=== PATIENT | female | born 1975 | race African-American/Black ===

== ENCOUNTER 2016-12-12 09:10 | Emergency (ER) | payer OTHER, MEDICAID ==
[~2016-12-12] VITALS: Ht 175.3 cm; Wt 111.0 kg
[~2016-12-12 09:10] MED LIST: METH500T3 PO
[2016-12-12 09:26] VITALS: BP 118/72; PULSE 78; RESP 18; TEMP 98.4; O2SAT 100
--- NOTE | 2016-12-12 11:13 | PD ---
HPI Chief Complaint: Hypertension Time Seen by Provider: 11:05 Travel History International Travel<30 days: No Contact w/Intl Traveler<30days: No Traveled to known affect area: No History of Present Illness HPI 40 year-old woman presents emergency room complaining of elevated blood pressure. She's not felt well for couple days has been taking her blood pressure at work and found it to be fluctuating up to the 160s systolic. She otherwise has been feeling generally well. No history of hypertension. No chest pain. She does endorse some occasional shortness of breath especially lying in certain positions. Her feet to swell sometimes at the end of the the day. 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 No other complaints. History Past Medical History Medical History: Denies Significant Hx Tetanus Vaccination: < 5 Years Influenza Vaccination: No LMP: 11-25-16 : 2 Para: 2 Social History Alcohol Use: No Tobacco Use: Yes (States, "Off and on") Allergies-Medications (Allergen,Severity, Reaction): Coded Allergies: No Known Allergies (Verified , 12/12/16) Reported Meds & Prescriptions Reported Meds & Active Scripts Active No Active Prescriptions or Reported Medications Review of Systems Except as stated in HPI: all other systems reviewed are Neg Physical Exam Narrative GENERAL: Well-appearing 40 year-old woman, no acute distress. SKIN: Warm and dry. HEAD: Atraumatic. Normocephalic. EYES: Pupils equal and round. No scleral icterus. No injection or drainage. ENT: No nasal bleeding or discharge. Mucous membranes pink and moist. NECK: Trachea midline. No JVD. CARDIOVASCULAR: Regular rate and rhythm. No murmur appreciated. RESPIRATORY: No accessory muscle use. Clear to auscultation. Breath sounds equal bilaterally. GASTROINTESTINAL: Abdomen soft, non-tender, nondistended. Hepatic and splenic margins not palpable. MUSCULOSKELETAL: No obvious deformities. No clubbing. No cyanosis. No edema. NEUROLOGICAL: Awake and alert. No obvious cranial nerve deficits. Motor grossly within normal limits. Normal speech. PSYCHIATRIC: Appropriate mood and affect; insight and judgment normal. Data Data Last Documented VS Vital Signs Date Time Temp Pulse Resp B/P Pulse Ox O2 Delivery O2 Flow Rate FiO2 12/12/16 11:25 82 16 126/62 98 Room Air 12/12/16 09:26 98.4 MDM Medical Decision Making Medical Screen Exam Complete: Yes Emergency Medical Condition: Yes Differential Diagnosis Hypertension, anxiety, acute illness, other Narrative Course Medical decision making 41 year-old woman presents emergent arm where there blood pressure is been up and down and that she has been feeling well for couple days. I don't see any real evidence of congestive heart failure. No chest pain to suggest an acute coronary syndrome. She likely needs outpatient follow-up for management of possible hypertension as well as routine medical care. Recommend outpatient follow-up with a primary physician. Diagnosis Primary Impression: Elevated blood pressure reading Additional Instructions: Establish with a primary doctor for follow-up with your blood pressure. He can keep a log of your blood pressure by taking it at the grocery store at the pharmacy. Make sure you sit down for several minutes prior to taking the blood pressure reading. Keep a log of her blood pressure and take it with you when you follow up with her primary physician. Return to the emergency department for any chest pain or trouble breathing. Med/Other Pt SpecificInfo: No Change to Meds Scripts No Active Prescriptions or Reported Meds Disposition: 01 DISCHARGE HOME Condition: Stable Elver Camejo MD Dec 12, 2016 11:13
[2016-12-12 11:25] VITALS: BP 126/62; PULSE 82; RESP 16; O2SAT 98
== END 2016-12-12 11:25 | disposition home or self-care (01) ==
LOC: PHED 09:10 → PHEFT 11:25
DX: R03.0 Elevated blood-pressure reading, without diagnosis of hypertension (principal); R06.02 Shortness of breath; M79.89 Other specified soft tissue disorders; Z72.0 Tobacco use
CPT/HCPCS: 99283

== ENCOUNTER 2017-06-09 08:55 | Emergency (ER) | payer SELFPAY ==
[~2017-06-09] VITALS: Ht 175.3 cm; Wt 111.0 kg
[2017-06-09 08:59] VITALS: BP 140/88; PULSE 81; RESP 16; TEMP 97.7; O2SAT 100
--- NOTE | 2017-06-09 09:12 | PD ---
HPI Chief Complaint: Headache Time Seen by Provider: 09:08 Travel History International Travel<30 days: No Contact w/Intl Traveler<30days: No Traveled to known affect area: No History of Present Illness HPI 41-year-old female here for evaluation of elevated blood pressure and headache. Patient reports that the symptoms started yesterday. She states that her blood pressure was elevated throughout the day yesterday. She also started having a headache. She reports pain behind her right eye which she describes as throbbing/ache, currently 7 out of 10. She took ibuprofen for this yesterday with significant improvement in pain. She does not take anything for high blood pressure. She describes photophobia in her right eye. No visual changes. No paresthesias or motor deficits. No fevers. PFSH Past Medical History Hx Anticoagulant Therapy: No Diminished Hearing: No Hypertension: Yes Immunizations Current: Yes Tetanus Vaccination: < 5 Years Influenza Vaccination: No ?: Not LMP: Today : 2 Para: 2 Miscarriage: 0 : 0 Past Surgical History Section: Yes (X's 2) Cholecystectomy: Yes Gynecologic Surgery: Yes ( 1 YEAR AGO) Social History Alcohol Use: No Tobacco Use: No Substance Use: No Allergies-Medications (Allergen,Severity, Reaction): Coded Allergies: No Known Allergies (Verified , 06/09/17) Reported Meds & Prescriptions Reported Meds & Active Scripts Active No Active Prescriptions or Reported Medications Review of Systems Except as stated in HPI: all other systems reviewed are Neg Physical Exam Narrative GENERAL: Well-developed, well-nourished, overall well-appearing, comfortable, no apparent distress. SKIN: Focused skin assessment warm/dry. HEAD: Atraumatic. Normocephalic. No temporal tenderness. EYES: Pupils equal, round, 3 mm, reactive to light. EOMI. No proptosis. No scleral icterus. No injection or drainage. ENT: Mucous membranes pink and moist. NECK: Trachea midline. No JVD. No nuchal rigidity. CARDIOVASCULAR: Regular rate and rhythm. RESPIRATORY: No accessory muscle use. Clear to auscultation. Breath sounds equal bilaterally. GASTROINTESTINAL: Abdomen soft, non-tender, nondistended. MUSCULOSKELETAL: No obvious deformities. No clubbing. No cyanosis. No edema. NEUROLOGICAL: Awake and alert. No obvious cranial nerve deficits. Motor grossly within normal limits. Normal speech. PSYCHIATRIC: Appropriate mood and affect; insight and judgment normal. Data Data Last Documented VS Vital Signs Date Time Temp Pulse Resp B/P (MAP) Pulse Ox O2 Delivery O2 Flow Rate FiO2 06/09/17 10:30 62 18 161/70 (100) 98 Room Air 06/09/17 08:59 97.7 Orders Orders Basic Metabolic Panel (Bmp) (06/09/17 09:08) Complete Blood Count With Diff (06/09/17 09:08) Iv Access Insert/Monitor (06/09/17 09:08) Ecg Monitoring (06/09/17 09:08) Oximetry (06/09/17 09:08) Sodium Chloride 0.9% Flush (Ns Flush) (06/09/17 09:15) Metoclopramide Inj (Reglan Inj) (06/09/17 09:15) Ketorolac Inj (Toradol Inj) (06/09/17 09:15) Sodium Chlor 0.9% 1000 Ml Inj (Ns 1000 M (06/09/17 09:15) Ct Brain W/O Iv Contrast(Rout) (06/09/17 ) Beta Hcg (Quant/Titer) (06/09/17 09:08) Labs Laboratory Tests Test 06/09/17 09:15 White Blood Count 4.3 TH/MM3 Red Blood Count 4.55 MIL/MM3 Hemoglobin 12.7 GM/DL Hematocrit 37.9 % Mean Corpuscular Volume 83.3 FL Mean Corpuscular Hemoglobin 27.8 PG Mean Corpuscular Hemoglobin Concent 33.4 % Red Cell Distribution Width 13.3 % Platelet Count 211 TH/MM3 Mean Platelet Volume 7.9 FL Neutrophils (%) (Auto) 46.6 % Lymphocytes (%) (Auto) 39.9 % Monocytes (%) (Auto) 8.2 % Eosinophils (%) (Auto) 4.5 % Basophils (%) (Auto) 0.8 % Neutrophils # (Auto) 2.1 TH/MM3 Lymphocytes # (Auto) 1.7 TH/MM3 Monocytes # (Auto) 0.3 TH/MM3 Eosinophils # (Auto) 0.2 TH/MM3 Basophils # (Auto) 0.0 TH/MM3 CBC Comment DIFF FINAL Differential Comment Blood Urea Nitrogen 9 MG/DL Creatinine 1.10 MG/DL Random Glucose 92 MG/DL Calcium Level 8.4 MG/DL Sodium Level 141 MEQ/L Potassium Level 3.9 MEQ/L Chloride Level 109 MEQ/L Carbon Dioxide Level 24.1 MEQ/L Anion Gap 8 MEQ/L Estimat Glomerular Filtration Rate 66 ML/MIN Human Chorionic Gonadotropin, Quant LESS THAN 1 MIU/ML MDM Medical Decision Making Medical Screen Exam Complete: Yes Emergency Medical Condition: Yes Medical Record Reviewed: Yes Differential Diagnosis Hypertensive urgency, cluster headache, migraine headache, tension headache, temporal arteritis unlikely, SAH/meningitis/encephalitis unlikely Narrative Course Initial vital signs show heart rate 81, blood pressure 140/88, pulse ox 100% on room air, oral temp of 97.7F. CBC is unremarkable. BMP is essentially unremarkable. CT head: No acute intracranial disease. Patient was given IV Toradol and IV Reglan. On reassessment she is resting comfortably. She states she is feeling a lot better. She is stable for discharge home with outpatient follow-up with a primary care physician this week. She was informed on when to return to the emergency department. She verbalizes understanding and agreement with plan. Diagnosis Primary Impression: Headache Qualified Codes: R51 - Headache Referrals: Primary Care Physician 3 days Additional Instructions: Follow-up with a primary care physician this week. Return to the emergency department for worsening symptoms or any other concerns. Scripts No Active Prescriptions or Reported Meds Disposition: 01 DISCHARGE HOME Condition: Stable Michael Pugh MD Jun 09, 2017 09:12
[2017-06-09] MEDS ORDERED: SODIUM CHLOR 0.9% 1000 ML INJ 1,000 ML IV ONE (09:15)
[2017-06-09] MEDS ORDERED: METOCLOPRAMIDE HCL 10 MG/2 ML VIAL IV PUSH ONE (09:15)
[2017-06-09] MEDS ORDERED: SODIUM CHLORIDE 0.9% FLUSH 10 ML FLUSH IV FLUSH PRN (09:15)
[2017-06-09] MEDS ORDERED: KETOROLAC TROMETHAMINE 30 MG/ML (IVP) VIAL IV PUSH ONE (09:15)
[2017-06-09 09:25] VITALS: O2SAT 100
[2017-06-09 09:28] LABS: AUTOMATED NEUTROPHIL # 2.1 TH/MM3 (1.8-7.7); BASOPHIL % 0.8 % (0.0-2.0); EOSINOPHIL # 0.2 TH/MM3 (0-0.4); EOSINOPHIL % 4.5 % (0.0-4.0); HEMATOCRIT 37.9 % (35.0-46.0); HEMO FLAGS DIFF FINAL; LYMPH % 39.9 % (9.0-44.0); LYMPHOCYTE # 1.7 TH/MM3 (1.0-4.8); MEAN CELL VOLUME 83.3 FL (80.0-100.0); MEAN CORPUSCULAR HEMOGLOBIN 27.8 PG (27.0-34.0); MEAN CORPUSCULAR HGB CONC 33.4 % (32.0-36.0); MONO % 8.2 % (0.0-8.0); NEUT % 46.6 % (16.0-70.0); PLATELET COUNT 211 TH/MM3 (150-450); RED BLOOD COUNT 4.55 MIL/MM3 (4.00-5.30); RED CELL DISTRIBUTION WIDTH 13.3 % (11.6-17.2); WHITE BLOOD COUNT 4.3 TH/MM3 (4.0-11.0)
[2017-06-09 09:57] LABS: CHLORIDE 109 MEQ/L (98-107); POTASSIUM 3.9 MEQ/L (3.5-5.1); SODIUM (NA) 141 MEQ/L (136-145)
[2017-06-09 10:00] LABS: ANION GAP 8 MEQ/L (5-15); BICARBONATE 24.1 MEQ/L (21.0-32.0); BLOOD UREA NITROGEN 9 MG/DL (7-18)
[2017-06-09 10:03] LABS: GLOMERULAR FILTRATION RATE 66 ML/MIN (>89)
[2017-06-09 10:08] LABS: BETA HCG QUANT LESS THAN 1 MIU/ML (0-5)
--- NOTE | 2017-06-09 10:25 | RADRPT ---
EXAM DATE/TIME: 06/09/2017 10:17 [facility] COMPARISON: No previous studies available for comparison. INDICATIONS : Headache with hypertension. RADIATION DOSE: 66.65 CTDIvol (mGy) MEDICAL HISTORY : Hypertension. SURGICAL HISTORY : Cholecystectomy. section. ENCOUNTER: Initial ACUITY: 2 days PAIN SCALE: 7/10 LOCATION: cranial TECHNIQUE: Multiple contiguous axial images were obtained of the head. Using automated exposure control and adj ustment of the mA and/or kV according to patient size, radiation dose was kept as low as reasonably a chievable to obtain optimal diagnostic quality images. DICOM format image data is available electro nically for review and comparison. FINDINGS: CEREBRUM: The ventricles are normal for age. No evidence of midline shift, mass lesion, hemorrhage or acute in farction. No extra-axial fluid collections are seen. POSTERIOR FOSSA: The cerebellum and brainstem are intact. The 4th ventricle is midline. The cerebellopontine angle i s unremarkable. EXTRACRANIAL: The visualized portion of the orbits is intact. SKULL: The calvaria is intact. No evidence of skull fracture. CONCLUSION: No acute intracranial disease. Lowell Graham MD on June 09, 2017 at 10:23 Board Certified Radiologist. This report was verified electronically.
[2017-06-09 10:30] VITALS: BP 161/70; PULSE 62; RESP 18; O2SAT 98
== END 2017-06-09 10:55 | disposition home or self-care (01) ==
LOC: PHED 08:55
DX: R51 Headache (principal)
CPT/HCPCS: 70450; 80048; 84702; 85025; 96361; 96374; 96375; 99285; J1885; J2765; J7030

== ENCOUNTER 2017-10-11 05:42 | Emergency (ER) | payer SELFPAY ==
[2017-10-11 05:45] VITALS: BP 158/98; PULSE 205; RESP 18; TEMP 98.2; O2SAT 97
[2017-10-11] MEDS ORDERED: ADENOSINE IV SOLN 3 MG/ML 2 ML VIAL ONE ×3 (05:48)
[2017-10-11 05:59] LABS: BASOPHIL # 0.1 TH/MM3 (0-0.2); BASOPHIL % 0.7 % (0.0-2.0); EOSINOPHIL # 0.1 TH/MM3 (0-0.4); EOSINOPHIL % 1.4 % (0.0-4.0); HEMATOCRIT 42.8 % (35.0-46.0); HEMOGLOBIN 14.1 GM/DL (11.6-15.3); LYMPH % 45.7 % (9.0-44.0); MEAN CELL VOLUME 82.3 FL (80.0-100.0); MEAN CORPUSCULAR HEMOGLOBIN 27.1 PG (27.0-34.0); MEAN CORPUSCULAR HGB CONC 32.9 % (32.0-36.0); MEAN PLATELET VOLUME 8.3 FL (7.0-11.0); MONO % 6.3 % (0.0-8.0); MONOCYTE # 0.6 TH/MM3 (0-0.9); NEUT % 45.9 % (16.0-70.0); PLATELET COUNT 257 TH/MM3 (150-450); RED CELL DISTRIBUTION WIDTH 13.5 % (11.6-17.2); WHITE BLOOD COUNT 8.8 TH/MM3 (4.0-11.0)
[2017-10-11] MEDS ORDERED: SODIUM CHLORIDE 0.9% FLUSH 10 ML FLUSH IVF PRN (06:00)
[2017-10-11] MEDS ORDERED: ASPIRIN 81 MG CHEW TAB PO ONE (06:00)
[2017-10-11] MEDS ORDERED: ADENOSINE IV SOLN 3 MG/ML 2 ML VIAL IV PUSH ONE ×2 (06:00)
[2017-10-11] MEDS ORDERED: SODIUM CHLOR 0.9% 1000 ML INJ 1,000 ML IV ONE (06:00)
[2017-10-11 06:05] LABS: CHLORIDE 103 MEQ/L (98-107); SODIUM (NA) 136 MEQ/L (136-145)
[2017-10-11 06:07] LABS: CALCIUM 8.3 MG/DL (8.5-10.1)
[2017-10-11 06:08] LABS: BICARBONATE 22.4 MEQ/L (21.0-32.0); BLOOD UREA NITROGEN 16 MG/DL (7-18); GLUCOSE,RANDOM 147 MG/DL (74-106)
[2017-10-11 06:09] LABS: PROTHROMBIN TIME - PATIENT 10.3 SEC (9.8-11.6)
[2017-10-11 06:11] LABS: GLOMERULAR FILTRATION RATE 54 ML/MIN (>89)
[2017-10-11 06:12] VITALS: BP 158/98; PULSE 100; RESP 15; TEMP 98.2; O2SAT 100
[2017-10-11 06:16] LABS: TROPONIN I LESS THAN 0.02 NG/ML (0.02-0.05)
--- NOTE | 2017-10-11 06:33 | RADRPT ---
EXAM DATE/TIME: 10/11/2017 05:55 [facility] COMPARISON: No previous studies available for comparison. INDICATIONS : Chest pressure. MEDICAL HISTORY : Hypertension. SURGICAL HISTORY : Cholecystectomy. section ENCOUNTER: Initial ACUITY: 1 day PAIN SCORE: 7/10 LOCATION: Bilateral chest FINDINGS: A single view of the chest demonstrates the lungs to be symmetrically aerated without evidence of mas s, infiltrate or effusion. The cardiomediastinal contours are unremarkable. Osseous structures are intact. CONCLUSION: No acute disease. Hi Mendez MD on October 11, 2017 at 6:30 Board Certified Radiologist. This report was verified electronically.
--- NOTE | 2017-10-11 06:38 | PD ---
HPI Chief Complaint: Cardiac Complaint Time Seen by Provider: 05:48 Travel History International Travel<30 days: No Contact w/Intl Traveler<30days: No Traveled to known affect area: No History of Present Illness HPI 42-year-old female presents to the emergency department for complaint of heart racing with diaphoresis. Symptoms began this morning. No prior history of rapid heartbeat or cardiac disease. Patient admits to drinking alcohol last evening celebrating her birthday and also admits to cocaine use. Has history of hypertension but denies dyslipidemia CAD arrhythmia diabetes or regular tobacco use. Family history of diabetes and hypertension in her family on father's side. Patient has associated shortness of breath and tightness in the chest states "feels difficult to breathe". PFSH Past Medical History Hx Anticoagulant Therapy: No Diminished Hearing: No Hypertension: Yes Immunizations Current: Yes : 2 Para: 2 Miscarriage: 0 : 0 Past Surgical History Section: Yes (X's 2) Cholecystectomy: Yes Gynecologic Surgery: Yes ( 1 YEAR AGO) Social History Alcohol Use: No Tobacco Use: No Substance Use: No Allergies-Medications (Allergen,Severity, Reaction): Coded Allergies: No Known Allergies (Verified , 06/09/17) Reported Meds & Prescriptions Reported Meds & Active Scripts Active Metoprolol Tartrate 25 Mg Tab 25 Mg PO DAILY Physical Exam Narrative GENERAL: Well-developed well-nourished female appears anxious and in moderate distress SKIN: Warm and dry. HEAD: Normocephalic. EYES: No scleral icterus. No injection or drainage. NECK: Supple, trachea midline. No JVD or lymphadenopathy. CARDIOVASCULAR: Increased Regular rate and rhythm without murmurs, gallops, or rubs. RESPIRATORY: Breath sounds equal bilaterally. No accessory muscle use. GASTROINTESTINAL: Abdomen soft, non-tender, nondistended. MUSCULOSKELETAL: No cyanosis, or edema. BACK: Nontender without obvious deformity. No CVA tenderness. Data Data Last Documented VS Vital Signs Date Time Temp Pulse Resp B/P (MAP) Pulse Ox O2 Delivery O2 Flow Rate FiO2 10/11/17 08:08 96 16 100 10/11/17 07:00 Nasal Cannula 2.00 10/11/17 06:12 98.2 Orders Orders Adenosine Inj (Adenocard Inj) (10/11/17 05:48) Adenosine Inj (Adenocard Inj) (10/11/17 06:00) Sodium Chlor 0.9% 1000 Ml Inj (Ns 1000 M (10/11/17 06:00) Adenosine Inj (Adenocard Inj) (10/11/17 05:48) Adenosine Inj (Adenocard Inj) (10/11/17 05:48) Electrocardiogram (10/11/17 05:49) Basic Metabolic Panel (Bmp) (10/11/17 05:49) Ckmb (Isoenzyme) Profile (10/11/17 05:49) Complete Blood Count With Diff (10/11/17 05:49) Magnesium (Mg) (10/11/17 05:49) Prothrombin Time / Inr (Pt) (10/11/17 05:49) Act Partial Throm Time (Ptt) (10/11/17 05:49) Troponin I (10/11/17 05:49) Chest, Single Ap (10/11/17 05:49) Ecg Monitoring (10/11/17 05:49) Bilateral Bp Monitoring (10/11/17 05:49) Iv Access Insert/Monitor (10/11/17 05:49) Oximetry (10/11/17 05:49) Oxygen Administration (10/11/17 05:49) Sodium Chloride 0.9% Flush (Ns Flush) (10/11/17 06:00) Thyroid Stimulating Hormone (10/11/17 05:49) Drug Screen, Random Urine (10/11/17 05:53) Alcohol (Ethanol) (10/11/17 05:50) CKMB (10/11/17 05:50) CKMB% (10/11/17 05:50) Ed Discharge Order (10/11/17 08:12) Electrocardiogram (10/11/17 05:53) Labs Laboratory Tests Test 10/11/17 05:50 10/11/17 06:30 White Blood Count 8.8 TH/MM3 Red Blood Count 5.20 MIL/MM3 Hemoglobin 14.1 GM/DL Hematocrit 42.8 % Mean Corpuscular Volume 82.3 FL Mean Corpuscular Hemoglobin 27.1 PG Mean Corpuscular Hemoglobin Concent 32.9 % Red Cell Distribution Width 13.5 % Platelet Count 257 TH/MM3 Mean Platelet Volume 8.3 FL Neutrophils (%) (Auto) 45.9 % Lymphocytes (%) (Auto) 45.7 % Monocytes (%) (Auto) 6.3 % Eosinophils (%) (Auto) 1.4 % Basophils (%) (Auto) 0.7 % Neutrophils # (Auto) 4.0 TH/MM3 Lymphocytes # (Auto) 4.0 TH/MM3 Monocytes # (Auto) 0.6 TH/MM3 Eosinophils # (Auto) 0.1 TH/MM3 Basophils # (Auto) 0.1 TH/MM3 CBC Comment DIFF FINAL Differential Comment Prothrombin Time 10.3 SEC Prothromb Time International Ratio 1.0 RATIO Activated Partial Thromboplast Time 25.1 SEC Blood Urea Nitrogen 16 MG/DL Creatinine 1.30 MG/DL Random Glucose 147 MG/DL Calcium Level 8.3 MG/DL Magnesium Level 2.0 MG/DL Sodium Level 136 MEQ/L Potassium Level 3.5 MEQ/L Chloride Level 103 MEQ/L Carbon Dioxide Level 22.4 MEQ/L Anion Gap 11 MEQ/L Estimat Glomerular Filtration Rate 54 ML/MIN Total Creatine Kinase 170 U/L Creatine Kinase MB 0.9 NG/ML Troponin I LESS THAN 0.02 NG/ML Thyroid Stimulating Hormone 3rd Gen 2.270 uIU/ML Ethyl Alcohol Level LESS THAN 3 MG/DL Urine Opiates Screen NEG Urine Barbiturates Screen NEG Urine Amphetamines Screen NEG Urine Benzodiazepines Screen NEG Urine Cocaine Screen POS Urine Cannabinoids Screen NEG MDM Medical Decision Making Medical Screen Exam Complete: Yes Emergency Medical Condition: Yes Medical Record Reviewed: Yes Interpretation(s) EKG SVT rate [address] elevation or injury pattern EKG after Adenocard 6 mg sinus tachycardia rate [address] elevation or injury pattern Last Impressions Chest X-Ray 10/11/17 0549 Signed Impressions: Service Date/Time: Wednesday, October 11, 2017 05:55 - CONCLUSION: No acute disease. Hi Mendez MD CBC & BMP Diagram 10/11/17 05:50 Calcium Level 8.3 L, Magnesium Level 2.0 Vital Signs Date Time Temp Pulse Resp B/P (MAP) Pulse Ox O2 Delivery O2 Flow Rate FiO2 10/11/17 06:59 16 100 Nasal Cannula 2.00 10/11/17 06:12 100 Nasal Cannula 2.00 10/11/17 06:12 98.2 100 15 158/98 (118) 100 Nasal Cannula 2.00 10/11/17 06:12 100 10/11/17 06:10 100 97 Nasal Cannula 2.00 10/11/17 05:45 98.2 205 18 158/98 (118) 97 Troponin I less than 0.02 Differential Diagnosis Palpitations, dyspnea, chest pain, atypical chest pain, ACS, substance ingestion , holiday heart Narrative Course patient placed on monitoring engineer with continuous pulse oximetry patient identified to be in SVT by monitoring engineer EKG performed which confirms SVT with no acute injury pattern change patient administered bolus of Adenocard 6 mg IV with conversion to sinus tachycardia again EKG performed shows sinus tachycardia rate 110 no acute injury pattern no ST elevation Advice and off for resulting Patient is are taken aspirin and is asymptomatic at this time Plan is to identify if patient has any other substances on tox screen is she now admits to cocaine use. Recommend metoprolol 12.5 as needed for recurrent SVT however she must understand that she cannot take this medication if she is using cocaine Lab values pending patient signed over to Dr. Zuñiga for disposition Diagnosis Primary Impression: SVT (supraventricular tachycardia) Additional Impression: Cocaine use Scripts Metoprolol Tartrate (Metoprolol Tartrate) 25 Mg Tab 25 MG PO DAILY for SVT, #30 TAB 0 Refills Prov: Jamal Zuñiga MD 10/11/17 Jayla Rhodes MD Oct 11, 2017 06:38
[2017-10-11 07:00] VITALS: BP 149/77; PULSE 99; RESP 16; O2SAT 100
--- NOTE | 2017-10-11 07:13 | PD ---
HPI Chief Complaint: Cardiac Complaint Time Seen by Provider: 07:10 Travel History International Travel<30 days: No Contact w/Intl Traveler<30days: No Traveled to known affect area: No History of Present Illness HPI Care assumed from Dr. Rhodes, please see previous note Patient placed on night monitor with continuous pulse oximetry patient identified to be in SVT by night monitor EKG performed which confirms SVT with no acute injury pattern change patient administered bolus of Adenocard 6 mg IV with conversion to sinus tachycardia again EKG performed shows sinus tachycardia rate 110 no acute injury pattern no ST elevation Advice and off for resulting Patient is are taken aspirin and is asymptomatic at this time Plan is to identify if patient has any other substances on tox screen is she now admits to cocaine use. Recommend metoprolol 12.5 as needed for recurrent SVT however she must understand that she cannot take this medication if she is using cocaine Lab values pending patient signed over to Dr. Zuñiga for disposition PFSH Past Medical History Hx Anticoagulant Therapy: No Patient Takes Glucophage: No Diminished Hearing: No Hypertension: Yes Immunizations Current: Yes Influenza Vaccination: No ?: Not LMP: 09/21/2017 : 2 Para: 2 Miscarriage: 0 : 0 Past Surgical History Section: Yes (X's 2) Cholecystectomy: Yes Gynecologic Surgery: Yes ( X 2) Social History Alcohol Use: Yes (DRANK LAST NIGHT FOR BIRTHDAY CELEBRATION) Tobacco Use: Yes (SMOKED LAST NIGHT 10/10/17) Substance Use: Yes (LAST NIGHT COCCAINE) Allergies-Medications (Allergen,Severity, Reaction): Coded Allergies: No Known Allergies (Verified , 06/09/17) Reported Meds & Prescriptions Reported Meds & Active Scripts Active No Active Prescriptions or Reported Medications Review of Systems General / Constitutional: No: Fever Eyes: No: Visual changes HENT: No: Headaches Cardiovascular: Positive: Tachycardia, No: Chest Pain or Discomfort Respiratory: No: Shortness of Breath Gastrointestinal: No: Abdominal Pain Genitourinary: No: Dysuria Musculoskeletal: No: Pain Skin: No Rash Neurologic: No: Weakness Psychiatric: No: Depression Endocrine: No: Polydipsia Hematologic/Lymphatic: No: Easy Bruising Physical Exam Narrative GENERAL: Well-nourished, well-developed patient. SKIN: Focused skin assessment warm/dry. HEAD: Normocephalic. EYES: No scleral icterus. No injection or drainage. NECK: Supple, trachea midline. No JVD or lymphadenopathy. CARDIOVASCULAR: Regular rate and rhythm without murmurs, gallops, or rubs. RESPIRATORY: Breath sounds equal bilaterally. No accessory muscle use. GASTROINTESTINAL: Abdomen soft, non-tender, nondistended. MUSCULOSKELETAL: No cyanosis, or edema. BACK: Nontender without obvious deformity. No CVA tenderness. Data Data Last Documented VS Vital Signs Date Time Temp Pulse Resp B/P (MAP) Pulse Ox O2 Delivery O2 Flow Rate FiO2 10/11/17 07:00 99 16 149/77 (101) 100 Nasal Cannula 2.00 10/11/17 06:12 98.2 Orders Orders Adenosine Inj (Adenocard Inj) (10/11/17 05:48) Adenosine Inj (Adenocard Inj) (10/11/17 06:00) Sodium Chlor 0.9% 1000 Ml Inj (Ns 1000 M (10/11/17 06:00) Adenosine Inj (Adenocard Inj) (10/11/17 05:48) Adenosine Inj (Adenocard Inj) (10/11/17 05:48) Electrocardiogram (10/11/17 05:49) Basic Metabolic Panel (Bmp) (10/11/17 05:49) Ckmb (Isoenzyme) Profile (10/11/17 05:49) Complete Blood Count With Diff (10/11/17 05:49) Magnesium (Mg) (10/11/17 05:49) Prothrombin Time / Inr (Pt) (10/11/17 05:49) Act Partial Throm Time (Ptt) (10/11/17 05:49) Troponin I (10/11/17 05:49) Chest, Single Ap (10/11/17 05:49) Ecg Monitoring (10/11/17 05:49) Bilateral Bp Monitoring (10/11/17 05:49) Iv Access Insert/Monitor (10/11/17 05:49) Oximetry (10/11/17 05:49) Oxygen Administration (10/11/17 05:49) Sodium Chloride 0.9% Flush (Ns Flush) (10/11/17 06:00) Thyroid Stimulating Hormone (10/11/17 05:49) Drug Screen, Random Urine (10/11/17 05:53) Alcohol (Ethanol) (10/11/17 05:50) CKMB (10/11/17 05:50) CKMB% (10/11/17 05:50) Labs Laboratory Tests Test 10/11/17 05:50 10/11/17 06:30 White Blood Count 8.8 TH/MM3 Red Blood Count 5.20 MIL/MM3 Hemoglobin 14.1 GM/DL Hematocrit 42.8 % Mean Corpuscular Volume 82.3 FL Mean Corpuscular Hemoglobin 27.1 PG Mean Corpuscular Hemoglobin Concent 32.9 % Red Cell Distribution Width 13.5 % Platelet Count 257 TH/MM3 Mean Platelet Volume 8.3 FL Neutrophils (%) (Auto) 45.9 % Lymphocytes (%) (Auto) 45.7 % Monocytes (%) (Auto) 6.3 % Eosinophils (%) (Auto) 1.4 % Basophils (%) (Auto) 0.7 % Neutrophils # (Auto) 4.0 TH/MM3 Lymphocytes # (Auto) 4.0 TH/MM3 Monocytes # (Auto) 0.6 TH/MM3 Eosinophils # (Auto) 0.1 TH/MM3 Basophils # (Auto) 0.1 TH/MM3 CBC Comment DIFF FINAL Differential Comment Prothrombin Time 10.3 SEC Prothromb Time International Ratio 1.0 RATIO Activated Partial Thromboplast Time 25.1 SEC Blood Urea Nitrogen 16 MG/DL Creatinine 1.30 MG/DL Random Glucose 147 MG/DL Calcium Level 8.3 MG/DL Magnesium Level 2.0 MG/DL Sodium Level 136 MEQ/L Potassium Level 3.5 MEQ/L Chloride Level 103 MEQ/L Carbon Dioxide Level 22.4 MEQ/L Anion Gap 11 MEQ/L Estimat Glomerular Filtration Rate 54 ML/MIN Total Creatine Kinase 170 U/L Creatine Kinase MB 0.9 NG/ML Troponin I LESS THAN 0.02 NG/ML Thyroid Stimulating Hormone 3rd Gen 2.270 uIU/ML Ethyl Alcohol Level LESS THAN 3 MG/DL Urine Opiates Screen NEG Urine Barbiturates Screen NEG Urine Amphetamines Screen NEG Urine Benzodiazepines Screen NEG Urine Cocaine Screen POS Urine Cannabinoids Screen NEG MDM Medical Decision Making Medical Screen Exam Complete: Yes Emergency Medical Condition: Yes Differential Diagnosis SVT, drug abuse, acute coronary syndrome Narrative Course Patient resting comfortably in sinus rhythm, labs pending, awaiting Disposition Diagnosis Primary Impression: SVT (supraventricular tachycardia) Additional Impression: Cocaine use Patient Instructions: General Instructions Additional Instructions: Encouraged to follow-up with PCP to assess continuation of daily beta apolinar. Encouraged cessation of drug use. Start medication tomorrow morning. Return to emergency room with any onset of new symptoms. Med/Other Pt SpecificInfo: Prescription(s) given, No Meds Exist/No RX given Scripts Metoprolol Tartrate (Metoprolol Tartrate) 25 Mg Tab 25 MG PO DAILY for SVT, #30 TAB 0 Refills Prov: Jamal Zuñiga MD 10/11/17 Disposition: 01 DISCHARGE HOME Condition: Good Jamal Zuñiga MD Oct 11, 2017 07:13
[2017-10-11] MEDS ORDERED: METO25TA3 PO (08:11)
--- NOTE | 2017-10-11 16:58 | EKG ---
Date Performed: 10/11/2017 Time Performed: 05:50:25 PTAGE: 42 years EKG: SUPRAVENTRICULAR TACHYCARDIA NONSPECIFIC ST & T-WAVE ABNORMALITY ABNORMAL RHYTHM ECG PREVIOUS TRACING : 11/27/2010 08.48 Compared to the previous tracing SR no longer present DOCTOR: Hong Zee Interpretating Date/Time 10/11/2017 16:57:26
--- NOTE | 2017-10-11 16:58 | EKG ---
Date Performed: 10/11/2017 Time Performed: 05:53:21 PTAGE: 42 years EKG: SINUS TACHYCARDIA MODERATE ST DEPRESSION PREVIOUS TRACING : 10/11/2017 05.50 Compared to the previous tracing SVT no longer presen t DOCTOR: Hong Zee Interpretating Date/Time 10/11/2017 16:56:43
== END 2017-10-11 08:24 | disposition home or self-care (01) ==
LOC: PHED 05:42
DX: I47.1 Supraventricular tachycardia (principal); F14.10 Cocaine abuse, uncomplicated; R94.31 Abnormal electrocardiogram [ECG] [EKG]; I10 Essential (primary) hypertension; Z72.0 Tobacco use
CPT/HCPCS: 71010; 80048; 80307; 82550; 82552; 83735; 84443; 84484; 85025; 85610; 85730; 93005; 96360; 99285; J0153; J7030

== ENCOUNTER 2018-04-29 04:19 | Observation (INO) ==
[2018-04-29] MEDS ORDERED: Adenosine Inj 6 MG/2 ML Syringe IV.PUSH ONE ×2 (04:33→04:37)
--- NOTE | 2018-04-29 04:57 | ED ---
HPI General Chief complaint: Arrhythmia/Palpitations Stated complaint: Chest Pain x 30 min Time Seen by Provider: 04/29/18 04:55 History of Present Illness HPI narrative: Patient is a 42-year-old female with a history of SVT presents the emergency department for evaluation of chest pain. Patient states she awoke from a sound sleep about an hour prior to presentation very uncomfortable heavy feeling in the center of her chest radiating up her right jaw. Patient states she has never had pain like this before but has had episodes of SVT in the past and had to be given a shot at least one time in the past for this. 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 Patient roomed expediently and on arrival was found to have a heart rate of 197. She also endorse some mild shortness of breath and some sweating. Related Data Home Medications Medication Instructions Recorded Confirmed No Known Home Medications 04/29/18 04/29/18 Allergies Allergy/AdvReac Type Severity Reaction Status Date / Time No Known Allergies Allergy Unverified 04/29/18 04:44 Review of Systems Except as stated in HPI: all other systems reviewed are negative [facility] Medical History Medical History delivery delivered (Acute) HTN (hypertension) (Acute) Kidney stones (Acute) Palpitations (Acute) Social History Social History Substance History: No History of Abuse Smoking Status: Current every day smoker Tobacco Type: Cigarettes How Often Do You Have a Drink Containing Alcohol: 2 to 4 times a month Exam Narrative Exam Narrative: GENERAL: Well-developed morbidly obese female appears mildly uncomfortable. SKIN: Focused skin assessment warm/dry. HEAD: Atraumatic. Normocephalic. EYES: Pupils equal and round. No scleral icterus. No injection or drainage. ENT: No nasal bleeding or discharge. Mucous membranes pink and moist. NECK: Trachea midline. No JVD. CARDIOVASCULAR: Regular rhythm with tachycardia, 2+ bilateral equal pulses in all 4 extremities peer RESPIRATORY: No accessory muscle use. Clear to auscultation. Breath sounds equal bilaterally. GASTROINTESTINAL: Abdomen soft, non-tender, nondistended. Hepatic and splenic margins not palpable. MUSCULOSKELETAL: No obvious deformities. No clubbing. No cyanosis. No edema. NEUROLOGICAL: Awake and alert. No obvious cranial nerve deficits. Motor grossly within normal limits. Normal speech. PSYCHIATRIC: Appropriate mood and affect; insight and judgment normal. Course Initial Documented Vital Signs Temperature 98.2 F 04/29/18 04:30 Pulse Rate 200 H 04/29/18 04:30 Respiratory Rate 20 04/29/18 04:30 Blood Pressure 134/71 04/29/18 04:30 Pulse Oximetry 98 04/29/18 04:30 Last Documented Vital Signs Temperature 98.2 F 04/29/18 04:30 Pulse Rate 92 H 04/29/18 04:40 Respiratory Rate 20 04/29/18 04:40 Blood Pressure 158/79 H 04/29/18 04:40 Pulse Oximetry 99 04/29/18 05:37 Medical Decision Making MDM Narrative Medical decision making narrative: Patient room to the emergency department, when noted to be in SVT at a rate of 197, IV access was obtained, patient alert and awake and oriented GCS of 15, blood pressure in the 130 systolic range. After IV access obtained patient was given 6 mg adenosine by rapid push, without effect the patient had a repeat dose of 12 mg of adenosine, and had conversion to sinus tachycardia and over the next few minutes had resolved to sinus rhythm. Patient's chest pain had then resolved. She reports that she did take full dose aspirin prior to arrival. repeat EKG after rate control shows sinus rhythm at a rate of 111 there is some minimal ST segment depression in 2 3 and aVF, no ST segment elevation. This shortened OK but no widened QRS. Singular PVC is also noted. Certainly this EKG does not meet STEMI alert criteria. Initial troponin negative, my concern is that the patient may have a rate dependent blockage that is causing her to have some pain as well. I have added a urine drug screen on to this patient. I think that she should be discussed for observation status and consideration of stress testing she has never had stress testing for this. FINAL DIAGNOSIS: Chest Pain, SVT. Differential Diagnosis Differential Diagnosis: ACS, ME, SVT, A. fib RVR, Aeyjz-Scjbysbhc-Rjwdd disease Medical Records Medical records reviewed: Yes I reviewed the patient's medical records. Patient's records show that the patient was here once in September 2017 for SVT, did receive a dose of adenosine, she did admit to cocaine use on that visit, she was started on beta-blockers but apparently never followed up with a primary care physician for this. She was not admitted to the hospital in this ER visit. Lab Data Result diagrams: 04/29/18 05:00 04/29/18 05:00 Lab Results 04/29/18 04/29/18 04/29/18 Range/Units 05:00 05:00 05:00 CBC w Diff Auto diff final WBC 4.7 (4.0-11.0) th/mm3 RBC 4.64 (4.00-5.30) mil/mm3 Hgb 12.9 (11.6-15.3) gm/dL Hct 38.5 (35.0-46.0) % MCV 83.1 (80.0-100.0) fL MCH 27.9 (27.0-34.0) pg MCHC 33.6 (32.0-36.0) % RDW 13.5 (11.6-17.2) % Plt Count 199 (150-450) th/mm3 MPV 8.5 (7.0-11.0) fL Neut % (Auto) 52.6 (16.0-70.0) % Lymph % (Auto) 37.0 (9.0-44.0) % [place] % (Auto) 7.0 (0.0-8.0) % Eos % (Auto) 1.6 (0.0-4.0) % Baso % (Auto) 1.8 (0.0-2.0) % Neut # (Auto) 2.5 (1.8-7.7) th/mm3 Lymph # (Auto) 1.7 (1.0-4.8) th/mm3 [place] # (Auto) 0.3 (0.0-0.9) th/mm3 Eos # (Auto) 0.1 (0.0-0.4) th/mm3 Baso # (Auto) 0.1 (0.0-0.2) th/mm3 WBC Differential . Differential Comment . PT 11.0 (9.8-11.6) sec INR 1.1 Ratio APTT 26.4 (24.3-30.1) sec Sodium 141 (136-145) meq/L Potassium 3.2 L (3.5-5.1) meq/L Chloride 111 H (98-107) meq/L Carbon Dioxide 20.9 L (21.0-32.0) meq/L Anion Gap 9 (5-15) meq/L BUN 13 (7-18) mg/dL Creatinine 1.00 (0.50-1.00) mg/dL Estimated GFR 73 L (>89) mL/min Random Glucose 120 H (74-106) mg/dL Calcium 7.9 L (8.5-10.1) mg/dL Magnesium 1.8 (1.5-2.5) mg/dL Total Creatine Kinase 166 (26-192) U/L CK-MB (CK-2) 0.6 (0.5-3.6) ng/mL Troponin I Less than 0.02 L (0.02-0.05) ng/mL Imaging Data Radiologist's impression: ITS Impressions Chest X-Ray 04/29/18 04:56 CONCLUSION: 1. No acute cardiopulmonary disease. Discharge Plan Discharge Disposition Patient Disposition: 30 Still Patient Physicians Team ED Provider: Ambrocio Chinchilla Primary Care Provider: Primary Care Vianney Albarran Rxs /Orders / Referrals /Forms Prescriptions: No Action No Known Home Medications RF: 0 Status ED Status: With Doctor
[2018-04-29 05:16] LABS: Baso # (Auto) 0.1 th/mm3 (0.0-0.2); Baso % (Auto) 1.8 % (0.0-2.0); Eos # (Auto) 0.1 th/mm3 (0.0-0.4); Eos % (Auto) 1.6 % (0.0-4.0); Hematocrit 38.5 % (35.0-46.0); Hemoglobin 12.9 gm/dL (11.6-15.3); Lymph # (Auto) 1.7 th/mm3 (1.0-4.8); Mean Corpuscular HGB Conc 33.6 % (32.0-36.0); Mean Corpuscular Hemoglobin 27.9 pg (27.0-34.0); Mean Corpuscular Volume 83.1 fL (80.0-100.0); Mean Platelet Volume 8.5 fL (7.0-11.0); Mono # (Auto) 0.3 th/mm3 (0.0-0.9); Neut # (Auto) 2.5 th/mm3 (1.8-7.7); Neut % (Auto) 52.6 % (16.0-70.0); Platelet Count 199 th/mm3 (150-450); Red Blood Count 4.64 mil/mm3 (4.00-5.30); Red Cell Distribution Width 13.5 % (11.6-17.2); White Blood Count 4.7 th/mm3 (4.0-11.0)
--- NOTE | 2018-04-29 05:23 | XR ---
EXAM DATE: 04/29/2018 5:12 AM EDT AGE/SEX: 42 years / Female INDICATIONS: Chest pain. CLINICAL DATA: This is the patient's initial encounter. Patient reports that signs and symptoms have been present for 1 day and indicates a pain score of 7/10. MEDICAL/SURGICAL HISTORY: . Hypertension . Cholecystectomy. section COMPARISON: [facility], CHEST SINGLE AP, 10/11/2017. . FINDINGS: A single AP view of the chest demonstrates the lungs to be symmetrically aerated without evidence of mass, infiltrate or effusion. The cardiomediastinal contours are unremarkable. Osseous structures a re intact. CONCLUSION: 1. No acute cardiopulmonary disease. Electronically signed by: Romel Castillo MD 04/29/2018 5:22 AM EDT
[2018-04-29 05:24] LABS: Chloride 111 meq/L (98-107); Potassium 3.2 meq/L (3.5-5.1); Sodium 141 meq/L (136-145)
[2018-04-29 05:26] LABS: Calcium 7.9 mg/dL (8.5-10.1)
[2018-04-29 05:27] LABS: Anion Gap 9 meq/L (5-15); Blood Urea Nitrogen 13 mg/dL (7-18); Carbon Dioxide 20.9 meq/L (21.0-32.0); Glucose,Random 120 mg/dL (74-106); Magnesium 1.8 mg/dL (1.5-2.5)
[2018-04-29 05:29] LABS: Activated Partial Thrombo Time 26.4 sec (24.3-30.1); INR 1.1 Ratio
[2018-04-29 05:30] LABS: Glomerular Filtration Rate 73 mL/min (>89)
[2018-04-29 05:33] LABS: Creatine Kinase 166 U/L (26-192)
[2018-04-29 05:45] LABS: Creatine Kinase MB 0.6 ng/mL (0.5-3.6)
[2018-04-29 07:04] LABS: Bilirubin,Urine Negative (Negative); Clarity,Urine Clear (Clear); Color,Urine Yellow (Yellw/Straw); Glucose,Urine (UA) Negative (Negative); Leukocyte Esterase,Urine Negative (Negative); Nitrite,Urine Negative (Negative); Urobilinogen,Urine 0.2 mg/dL (Less than 2)
[2018-04-29 07:11] LABS: Amphetamine Screen,Urine Neg (Neg)
[2018-04-29 07:12] LABS: Cannabinoid Screen,Urine Neg (Neg); Cocaine Screen,Urine Pos (Neg); RBC,Urine 0-3 /hpf (0-3); Squamous Epithelial Cell,Urine 0-5 /hpf (0-5)
[2018-04-29 07:20] LABS: Barbiturate Screen,Urine Neg (Neg)
[2018-04-29 07:26] LABS: Opiate Screen,Urine Neg (Neg)
--- NOTE | 2018-04-29 08:35 | ECG ---
Date Performed: 04/29/2018 Time Performed: 04:40:43 PTAGE: 42 years EKG: SINUS TACHYCARDIA WITH SHORT [place] INTERVAL WITH OCCASIONAL VENTRICULAR PREMATURE COMPLEXES PO SSIBLE LEFT ATRIAL ENLARGEMENT No significant change from prior electrocardiogram. ABNORMAL ECG Maurilio red to prior electrocardiogram, Sinus rhythm has replaced SVT. PREVIOUS TRACING : 10/11/2017 05.53 DOCTOR: Bobby Fabian Interpretating Date/Time 04/29/2018 08:34:26
--- NOTE | 2018-04-29 08:36 | ECG ---
Date Performed: 04/29/2018 Time Performed: 04:39:43 PTAGE: 42 years EKG: SUPRAVENTRICULAR TACHYCARDIA NONSPECIFIC ST & T-WAVE ABNORMALITY ABNORMAL ECG Compared to p rior electrocardiogram, SVT has replaced either sinus tachycardia or atrial flutter. PREVIOUS TRACING : 10/11/2017 05.53 DOCTOR: Bobby Fabian Interpretating Date/Time 04/29/2018 08:35:21
--- NOTE | 2018-04-29 09:25 | P.HP ---
History of Present Illness Primary Care Physician: No Primary Care Physician History of Present Illness: This is a pleasant 42-year-old female patient with a known medical history of SVT who presented to the ED with complaints of chest pain. Patient states that she was awoken out of sleep roughly around 4 AM this morning when she developed a heavy feeling in her chest, the heaviness radiating up her right jaw as well as associated palpitations. Patient does admit to associated shortness of breath with the pain. Denies any sweating or nausea or vomiting. Patient does state that she does have a history of SVT in the past, her last episode was last year was given a dose of adenosine and symptoms resolved. Patient denies ever having chest pain or a cardiac stress test in the past. She does not follow with the optometrist nor a PCP. Upon presentation patient's heart rate was in the 190s. Was given adenosine 2 and eventually resolved to sinus rhythm. At the time of assessment patient's symptoms have improved, cardiac telemetry with no arrhythmias overnight. Normal sinus rhythm noted. No chest pain. Patient denies any shortness of breath or diaphoresis overnight. Patient denies any recent illness including fever, chills, cough, abdominal pain , nausea, vomiting, diarrhea or dysuria. Patient does not take any medicines at home. It should be noted that patient has a family history of her father having an AL in his 40s and over the course of his life he had a total of 5 MIs. Patient does admit to intermittently smoking cigarettes roughly 1 or 2 cigarettes per week. She does admit to cocaine use 2 days ago during a republican, states she does not usually do cocaine and this was a one-time incident. - Diagnosis (1) SVT (supraventricular tachycardia) (2) Chest pain Inpatient Certification: I certify that the inpatient services were ordered in accordance with Medicare regulations governing the order. This includes certification that hospital inpatient services are reasonable and necessary and in the case of services not specified as inpatient-only under 42 CFR 419.22(n), that they are appropriately provided as inpatient services in accordance to with the 2-midnight benchmark under 43 CFR 412.3(e) Review of Systems All other systems reviewed negative except as stated in HPI [facility] - History History Provided By: Patient - Medical History Medical History: Medical History (Last Updated 04/29/18 @ 05:30 by Chelo L Bunting) delivery delivered HTN (hypertension) Kidney stones Palpitations - Family History Family History: Family History (Last Updated 04/29/18 @ 11:24 by Jessi Hughes) Other Heart attack - Tobacco History Second Hand Smoke Exposure: No Tobacco Use In Past 30 Days: No Smoking Status: Current some day smoker Tobacco Type: Cigarettes - Alcohol History How Often Do You Have a Drink Containing Alcohol: Monthly or less - Substance Use History Substance History: No History of Abuse - Immunization History Tetanus Immunization: Unsure Medications and Allergies Active Medications: Active Medications Aspirin (Ecotrin) 325 mg PO DAILY [facility] Last Admin: 04/29/18 08:55 Dose: 325 mg Nitroglycerin (Nitro-Bid 2% Oint) 1 inch TOPICAL Q6HR [facility] Ondansetron HCl (Zofran Inj) 4 mg IV.PUSH Q6H PRN PRN Reason: NAUSEA OR VOMITING Sodium Chloride (Ns Flush) 2 ml IV.FLUSH UNSCH PRN PRN Reason: FLUSH AFTER USING IV ACCESS Last Admin: 04/29/18 08:56 Dose: 2 ml Sodium Chloride (Ns Inj) 2 ml IV.FLUSH BID [facility] Sodium Chloride (Ns Inj) 2 ml IV.FLUSH UNSCH PRN PRN Reason: FLUSH AFTER USING IV ACCESS Allergies Allergy/AdvReac Type Severity Reaction Status Date / Time No Known Allergies Allergy Unverified 04/29/18 04:44 Home Medications Medication Instructions Recorded Confirmed Type No Known Home Medications 04/29/18 04/29/18 History Exam Vital signs: Vital Signs 04/29/18 04:30 04/29/18 04:40 04/29/18 05:37 Temperature 98.2 F Pulse Rate 200 H 92 H Respiratory Rate 20 20 Blood Pressure 134/71 158/79 H Pulse Oximetry 99 99 99 04/29/18 06:47 Temperature Pulse Rate 96 H Respiratory Rate 18 Blood Pressure 139/70 Pulse Oximetry 98 Intake & Output 04/28/18 04/29/18 04/29/18 18:59 06:59 18:59 Weight 113 kg - Constitutional no acute distress - Routine HEENT Exam Head: Present: normocephalic Eye: Present: EOMI, PERRL - Routine Neck Exam Present: supple, full ROM - Routine Cardiovascular Exam Present: RRR, S1, S2 - Routine Abdominal Exam Present: soft - Routine Skin Exam Present: intact - Routine Neurological Exam Present: alert, oriented X3 Results - Labs CBC & Chem 7: 04/29/18 05:00 04/29/18 05:00 Labs: Laboratory Results - last 24 hr 04/29/18 04/29/18 04/29/18 05:00 05:00 05:00 CBC w Diff Auto diff final WBC 4.7 RBC 4.64 Hgb 12.9 Hct 38.5 MCV 83.1 MCH 27.9 MCHC 33.6 RDW 13.5 Plt Count 199 MPV 8.5 Neut % (Auto) 52.6 Lymph % (Auto) 37.0 Hubbard % (Auto) 7.0 Eos % (Auto) 1.6 Baso % (Auto) 1.8 Neut # (Auto) 2.5 Lymph # (Auto) 1.7 Hubbard # (Auto) 0.3 Eos # (Auto) 0.1 Baso # (Auto) 0.1 WBC Differential . Differential Comment . PT 11.0 INR 1.1 APTT 26.4 Sodium 141 Potassium 3.2 L Chloride 111 H Carbon Dioxide 20.9 L Anion Gap 9 BUN 13 Creatinine 1.00 Estimated GFR 73 L Random Glucose 120 H Calcium 7.9 L Magnesium 1.8 Total Creatine Kinase 166 CK-MB (CK-2) 0.6 Troponin I Less than 0.02 L Ur Collection Type Urine Color Urine Clarity Urine pH Ur Specific [place] Urine Protein Urine Glucose (UA) Urine Ketones Urine Occult Blood Urine Nitrate Urine Bilirubin Urine Urobilinogen Ur Leukocyte Esterase Urine RBC Ur Squamous Epith Cells Micro UA Comment Urine Culture Comments Urine Opiates Screen Ur Barbiturates Screen Ur Amphetamines Screen U Benzodiazepines Scrn Urine Cocaine Screen U Cannabinoids Screen 04/29/18 04/29/18 06:55 06:55 CBC w Diff WBC RBC Hgb Hct MCV MCH MCHC RDW Plt Count MPV Neut % (Auto) Lymph % (Auto) Hubbard % (Auto) Eos % (Auto) Baso % (Auto) Neut # (Auto) Lymph # (Auto) Hubbard # (Auto) Eos # (Auto) Baso # (Auto) WBC Differential Differential Comment PT INR APTT Sodium Potassium Chloride Carbon Dioxide Anion Gap BUN Creatinine Estimated GFR Random Glucose Calcium Magnesium Total Creatine Kinase CK-MB (CK-2) Troponin I Ur Collection Type Clean catch Urine Color Yellow Urine Clarity Clear Urine pH 6.0 Ur Specific [place] 1.010 Urine Protein Negative Urine Glucose (UA) Negative Urine Ketones Negative Urine Occult Blood Negative Urine Nitrate Negative Urine Bilirubin Negative Urine Urobilinogen 0.2 Ur Leukocyte Esterase Negative Urine RBC 0-3 Ur Squamous Epith Cells 0-5 Micro UA Comment Culture not ind Urine Culture Comments Culture not ind Urine Opiates Screen Neg Ur Barbiturates Screen Neg Ur Amphetamines Screen Neg U Benzodiazepines Scrn Neg Urine Cocaine Screen Pos U Cannabinoids Screen Neg - Imaging Impressions Chest X-Ray 04/29/18 04:56 CONCLUSION: 1. No acute cardiopulmonary disease. Caprini VTE Risk Assessment Caprini VTE Risk Assessment: No/Low Risk (score <= 1) Caprini Risk Assessment Model: Point Value = 1 Point Value = 2 Point Value = 3 Point Value = 5 Age 41-60 Minor surgery BMI > 25 kg/m2 Swollen legs Varicose veins or History of unexplained or recurrent spontaneous Oral contraceptives or hormone replacement Sepsis (< 1 month) Serious lung disease, including pneumonia (< 1 month) Abnormal pulmonary function Acute myocardial infarction Congestive heart failure (< 1 month) History of inflammatory bowel disease Medical patient at bed rest Age 61-74 Arthroscopic surgery Major open surgery (> 45 min) Laparoscopic surgery (> 45 min) Malignancy Confined to bed (> 72 hours) Immobilizing plaster cast Central venous access Age >= 75 History of VTE Family history of VTE Factor V Leiden Prothrombin [id number] Lupus anticoagulant Anticardiolipin antibodies Elevated serum homocysteine Heparin-induced thrombocytopenia Other congenital or acquired thrombophilia Stroke (< 1 month) Elective arthroplasty Hip, pelvis, or leg fracture Acute spinal cord injury (< 1 month) Prophylaxis Regimen: Total Risk Factor Score Risk Level Prophylaxis Regimen 0-1 Low Early ambulation 2 Moderate Order ONE of the following: *Sequential Compression Device (SCD) *Heparin 5000 units SQ BID 3-4 Higher Order ONE of the following medications: *Heparin 5000 units SQ TID *Enoxaparin/Lovenox 40 mg SQ daily (WT < 150 kg, CrCl > 30 mL/min) *Enoxaparin/Lovenox 30 mg SQ daily (WT < 150 kg, CrCl > 10-29 mL/min) *Enoxaparin/Lovenox 30 mg SQ BID (WT < 150 kg, CrCl > 30 mL/min) AND/OR *Sequential Compression Device (SCD) 5 or more Highest Order ONE of the following medications: *Heparin 5000 units SQ TID (Preferred with Epidurals) *Enoxaparin/Lovenox 40 mg SQ daily (WT < 150 kg, CrCl > 30 mL/min) *Enoxaparin/Lovenox 30 mg SQ daily (WT < 150 kg, CrCl > 10-29 mL/min) *Enoxaparin/Lovenox 30 mg SQ BID (WT < 150 kg, CrCl > 30 mL/min) AND *Sequential Compression Device (SCD) Assessment and Plan - Assessment (1) SVT (supraventricular tachycardia) Code(s): I47.1 - Supraventricular tachycardia Status: Acute Plan: -Patient presented with a heart rate in the 190's. Required Adenosine x 2 in ED. Has resolved. Continued on cardiac telemetry, reviewed, with no acute events overnight. -Also admits to recent cocaine use. Educated on importance of stopping drug use and the detrimental effects on her heart and health. -Will continue to monitor. All symptoms have improved. (2) Chest pain Code(s): R07.9 - Chest pain, unspecified Status: Acute Plan: - Suspect secondary to SVT. Patient does admit to a significant family medical history of her father having his initial first AL at the age of 4040 years old. Over the course of his life he has a total of 5 MIs. Patient is unaware of her cholesterol levels, denies any history of hyperlipidemia or CAD. Does admit to a history of SVT. Does admit to occasional cocaine use as well as tobacco. Will add lipid panel to labs. -Patient will undergo a cardiac myocardial perfusion scan to further rule out any ischemia. Troponins flat. EKGS reviewed showing NSR with no ST changes. Will continue to monitor telemetry. -Will also add an ECHO. Denies any prior ECHO in the past. Will follow. - Plan Further treatment plan and work up will depend on myocardial perfusion scan results.
[2018-04-29 12:15] LABS: Troponin I 0.03 ng/mL (0.02-0.05)
[2018-04-29] MEDS ORDERED: Regadenoson Inj 0.4 MG/5 ML Syringe IV.PUSH ONE (14:00)
--- NOTE | 2018-04-29 15:09 | NM ---
EXAM DATE: 04/29/2018 2:47 PM EDT AGE/SEX: 42 years / Female INDICATIONS:Angina. Abnormal EKG Substernal chest pain radiating to right jaw for one day. Dyspnea an d diaphoresis. CLINICAL DATA: This is the patient's initial encounter. Patient reports that signs and symptoms have been present for 1 day and indicates a pain score of 5/10. MEDICAL/SURGICAL HISTORY: Hypertension. section. Tubal ligation. COMPARISON: No prior exams available for comparison. DOSE: 11 mCi Tc 99m Myoview at rest 35 mCi [id number] at stress 0.4 mg Lexiscan STRESS SYMPTOMS: Dyspnea, chest pressure, eye pressure and headache. EJECTION FRACTION: 50 % TECHNIQUE: The patient underwent pharmacologic stress with infusion of prescribed dose. Continuous ECG tracing was monitored during stress. Gated SPECT imaging was performed after stress and conventi onal SPECT imaging was performed at rest. The examination was performed on a SPECT/CT scanner, both attenuation and non-corrected datasets were reviewed. FINDINGS: Distribution: The maximum perfused segment at stress is in the inferior wall. Perfusion Study: The pattern of perfusion at stress is within normal limits. Gated Study: There is dyskinesia of the apical segment of the inferior wall without perfusion abnorm ality. The etiology of this is uncertain. The ejection fraction is calculated at 50%. RISK CATEGORY: Low (<1% Annual Motality Rate) CONCLUSION: No reversible ischemic segments are identified. There is dyskinesia involving the apical segment of the inferior wall and akinesia of the apex. This may reflect stunned myocardium. Electronically signed by: Facundo Bran MD 04/29/2018 3:08 PM EDT
--- NOTE | 2018-04-29 16:43 | ECHRPT ---
Indication: CHEST PAIN CONCLUSIONS Normal left ventricular size and wall thickness. The left ventricular systolic function is normal wi th an estimated ejection fraction in the range of 60-65%. No regional wall motion abnormalities are presen t. Trace tricuspid valve regurgitation. BP: / HR: Rhythm: Sinus MEASUREMENTS (Male / Female) Normal Values Technical Quality:Fair 2D ECHO LV Diastolic Diameter PLAX 5.0 cm 4.2 - 5.9 / 3.9 - 5.3 cm LV Systolic Diameter PLAX 3.3 cm IVS Diastolic Thickness 0.9 cm 0.6 - 1.0 / 0.6 - 0.9 cm LVPW Diastolic Thickness 0.9 cm 0.6 - 1.0 / 0.6 - 0.9 cm LV Relative Wall Thickness 0.4 RV Internal Dim ED PLAX 2.1 cm LVOT Diameter 1.9 cm Aortic Root Diameter 3.0 cm LA Systolic Diameter LX 3.3 cm 3.0 - 4.0 / 2.7 - 3.8 cm M-MODE AV Cusp Separation MM 1.7 cm DOPPLER AV Peak Velocity 124.0 cm/s AV Peak Gradient 6.2 mmHg AV Mean Gradient 4.0 mmHg AV Velocity Time Integral 24.1 cm LVOT Peak Velocity 66.9 cm/s LVOT Peak Gradient 1.8 mmHg LVOT Velocity Time Integral 16.1 cm AV Area Cont Eq vti 1.9 cm AV Area Cont Eq pk 1.5 cm Mitral E Point Velocity 66.1 cm/s Mitral A Point Velocity 61.7 cm/s Mitral E to A Ratio 1.1 LV E' Lateral Velocity 9.8 cm/s Mitral E to LV E' Lateral Ratio 6.7 LV E' Septal Velocity 8.7 cm/s Mitral E to LV E' Septal Ratio 7.6 TR Peak Velocity 202.0 cm/s TR Peak Gradient 16.3 mmHg Right Atrial Pressure 10.0 mmHg Pulmonary Artery Systolic Pressu 26.3 mmHg Right Ventricular Systolic Press 26.3 mmHg PV Peak Velocity 66.9 cm/s PV Peak Gradient 1.8 mmHg FINDINGS LEFT VENTRICLE Normal left ventricular size and wall thickness. The left ventricular systolic function is normal wi th an estimated ejection fraction in the range of 60-65%. No regional wall motion abnormalities are presen t. RIGHT VENTRICLE Normal right ventricular size and systolic function. LEFT ATRIUM The left atrial size is normal. RIGHT ATRIUM The right atrial size is normal. ATRIAL SEPTUM No atrial level shunt is demonstrated by color flow Doppler interrogation. AORTA The aortic root and proximal ascending aorta are not well visualized. MITRAL VALVE Structurally normal mitral valve. No mitral valve stenosis or regurgitation. AORTIC VALVE Trileaflet aortic valve. No aortic valve stenosis or regurgitation. TRICUSPID VALVE Structurally normal tricuspid valve. Trace tricuspid valve regurgitation. PULMONARY VALVE No pulmonary valve regurgitation or stenosis. VESSELS The inferior vena cava is normal in size. PERICARDIUM No pericardial effusion. Jaya Muir MD (Electronically Signed) Final Date:29 April 2018 16:41
[2018-04-29 18:56] LABS: Creatine Kinase 148 U/L (26-192)
--- NOTE | 2018-04-30 13:33 | ECG ---
Date Performed: 04/29/2018 Time Performed: 11:34:50 PTAGE: 42 years EKG: Sinus rhythm NORMAL ECG Since the PREVIOUS TRACING , no significant change noted PREVIOUS TRACIN04/29/2018 04.40 DOCTOR: Toni Stern Interpretating Date/Time 04/30/2018 13:23:54
--- NOTE | 2018-05-04 17:46 | TR ---
Date Performed: 04/29/2018 Time Performed: 14:12:04 DOCTOR: Facundo Narayanan DRUG LIST: CLINICAL HISTORY: CHEST PAIN REASON FOR TEST: Chest pain REASON FOR ENDING: OBSERVATION: CONCLUSION: COMMENTS: Lexiscan stress test was performed under standard four minute protocol. Radionuclide was injected one minute prior to ending the test. No electrocardiographic abormalities were present t o suggest ischemia. Nuclear imaging and interpretation are pending.
== END 2018-04-29 21:15 | disposition home or self-care (01) ==
LOC: PHEDA 04:19 → PH3 04:19 → PHED 04:19 → PH3 06:56
PROVIDERS: ADMIT Internal Medicine; ATTEND Internal Medicine
DX: Z79.899 Other long term (current) drug therapy; I10 Essential (primary) hypertension; F17.210 Nicotine dependence, cigarettes, uncomplicated; Z82.49 Family history of ischemic heart disease and other diseases of the circulatory system; R00.2 Palpitations; I07.1 Rheumatic tricuspid insufficiency; Z87.442 Personal history of urinary calculi; R06.00 Dyspnea, unspecified; R94.31 Abnormal electrocardiogram [ECG] [EKG]; I49.9 Cardiac arrhythmia, unspecified; R06.02 Shortness of breath; F14.90 Cocaine use, unspecified, uncomplicated; R07.9 Chest pain, unspecified; R61 Generalized hyperhidrosis; I47.1 Supraventricular tachycardia